=== PATIENT | female | born 1985 | race Hispanic/Latino ===

== ENCOUNTER 2018-12-01 22:03 | Emergency (ER) | payer OTHER ==
[2018-12-01 22:15] VITALS: BP 123/72
[2018-12-01] MEDS ORDERED: IBUPROFEN PO ONE (23:01)
[2018-12-01] MEDS ORDERED: NORCO 5/325 PO ONE (23:01)
[2018-12-01] MEDS ORDERED: CLEOCIN PO ONE (23:01)
--- NOTE | 2018-12-01 23:01 | Emergency Department Report ---
ED Female HPI - General Chief complaint: Dental/Oral Stated complaint: TOOTHACHE Time Seen by Provider: 12/01/18 22:40 Source: patient Mode of arrival: Ambulatory Limitations: No Limitations - Related Data Allergies Allergy/AdvReac Type Severity Reaction Status Date / Time No Known Allergies Allergy Unverified 12/01/18 22:15 ED Review of Systems ROS: Stated complaint: TOOTHACHE Other details as noted in HPI ED Past Medical Hx - Past Medical History Previous Medical History?: No - Surgical History Past Surgical History?: No - Social History Smoking Status: Never Smoker Substance Use Type: None ED Physical Exam - General Limitations: No Limitations ED Course Vital Signs 12/01/18 22:08 Temperature 99.3 F Pulse Rate 71 Respiratory 20 Rate Blood Pressure 123/72 O2 Sat by Pulse 99 Oximetry Critical care attestation.: If time is entered above; I have spent that time in minutes in the direct care of this critically ill patient, excluding procedure time. ED Disposition Condition: Stable
--- NOTE | 2018-12-01 23:02 | Emergency Department Report ---
HPI - General Chief Complaint: Dental/Oral Time Seen by Provider: 12/01/18 22:40 - HPI HPI: This is a 33-year-old female here report that she is having toothache that started today and is 10 out of 10. Pain is located to the left lower tooth with left facial swelling. She said she developed time 2 hours and did not help. Pain is worse with nontoxic in and no alleviating . Denies any nasal congestion, runny nose, sore throat, cough or shortness of breath. Denies any fever or chills or nausea or vomiting. ED Past Medical Hx - Past Medical History Previous Medical History?: No - Surgical History Past Surgical History?: No - Family History Family history: no significant - Social History Smoking Status: Never Smoker Substance Use Type: None - Medications Home Medications: Home Medications Medication Instructions Recorded Confirmed Last Taken Type Acetaminophen/Codeine [Tylenol 1 tab PO Q6H PRN #12 tab 12/01/18 Unknown Rx /Codeine # 3 tab] Amoxicillin [Amoxicillin TAB] 875 mg PO BID 10 Days #20 tablet 12/01/18 Unknown Rx Ibuprofen [Motrin] 800 mg PO Q8HR PRN #12 tablet 12/01/18 Unknown Rx ED Review of Systems ROS: Stated complaint: TOOTHACHE Other details as noted in HPI Constitutional: denies: chills, fever Eyes: denies: eye pain, eye discharge ENT: dental pain. denies: ear pain, throat pain, congestion Respiratory: denies: cough, shortness of breath, wheezing Cardiovascular: denies: chest pain, palpitations, edema, syncope Gastrointestinal: denies: nausea, vomiting Musculoskeletal: denies: back pain, arthralgia Skin: denies: rash Neurological: denies: headache Physical Exam - Physical Exam Vital Signs: Vital Signs 12/01/18 22:08 Temperature 99.3 F Pulse Rate 71 Respiratory 20 Rate Blood Pressure 123/72 O2 Sat by Pulse 99 Oximetry General: This is a 33-year-old female well-nourished well-developed in no acute distress. Physical Exam: Head: Normocephalic atraumatic Ears:BIateral TM pearly lopez . Kobe EAC with normal exam. No mastoid bone tenderness. Mouth: Moist, no pharyngeal erythema or exudate . Tongue is normal and oral airways patent. Uvula is midline. No abscess noted but noted dental tenderness around tooth # 18/19 and 20. Positive gingival enlargement Mild cellulitis without any induration. Noted dental cavities to several teeth without any pulp exposure. Lip is normal. Neck: Nontender to palpate, supple, normal range of motion. No adenopathy. No c- spine tenderness. Nose: Bilateral nasal mucosa normal exam maxillary and frontal sinuses non- tender to palpate. Eyes: Bilateral Sclerae and conjunctiva without injection. Bilateral pupils equal and reactive to light. Bilateral lids are normal. Normal accommodation.BEOMI Lungs: Clear to auscultate bilaterally, no rhonchi wheezes or rales. Normal work of breathing and no chest wall tenderness CV: S1, S2. Regular rate and rhythm negative murmur. Capillary refill is less than 3 seconds Extremity: No clubbing, cyanosis or edema. +2 pulses in all extremities and no neurovascular compromise Skin: Clean dry and intact, no rashes or lesions ED Course Vital Signs 12/01/18 22:08 Temperature 99.3 F Pulse Rate 71 Respiratory 20 Rate Blood Pressure 123/72 O2 Sat by Pulse 99 Oximetry - Reevaluation(s) Reevaluation #1: 12/01/18 23:25 She received Motrin 800 mg by mouth, clindamycin 600 mg by mouth and [place] 5/325 2 tablets by mouth to manage pain and to start treatment for oral cellulitis. ED Medical Decision Making - Medical Decision Making This is a 30-year-old female here for a toothache and that she just moved to [place] and she does not have a dentist. She was found to have dental cavities, gingivitis, fractured tooth and oral cellulitis. Patient was given Motrin 800 mg by mouth, 5/325 2 tablets by mouth and clindamycin 600 mg to treat cellulitis and toothache. I referred her to [facility] dental clinic and also been [facility] dental and they told her to call in the morning to schedule an appointment for follow-up visit. I instructed her in diagnosis, medication and need to follow-up with understanding. Discharged home in stable condition with prescription for Motrin, Tylenol No. 3 and amoxicillin Critical care attestation.: If time is entered above; I have spent that time in minutes in the direct care of this critically ill patient, excluding procedure time. ED Disposition Clinical Impression: Dental caries, Oral cellulitis, Gingivitis Fracture of tooth Qualifiers: Encounter type: initial encounter Fracture type: closed Qualified Code(s): S02.5XXA - Fracture of tooth (traumatic), initial encounter for closed fracture Disposition: DC-01 TO HOME OR SELFCARE Is pt being admited?: No Does the pt Need Aspirin: No Condition: Stable Instructions: Gingivitis (ED), Dental Caries (ED), Toothache (ED), Dental Abscess (ED) Additional Instructions: Please follow up with dentist as discussed. See instructions in discharge instruction paperwork. Call in the morning to schedule an appointment Motrin for mild to moderate pain and Tylenol 3 for severe pain but reason I gave her operate heavy machinery while taking Tylenol No. 3 as this medication causes drowsiness Gargle with Listerine mouthwash at least twice a day Referrals: Adan [facility] [Outside] - 12/05/18 Lonnie [facility] [Outside] - 12/05/18 Forms: Accompanied Note, Work/School Release Form(ED)
== END 2018-12-01 23:40 | disposition home or self-care (01) ==
LOC: ED 22:03
DX: S02.5XXA Fracture of tooth (traumatic), initial encounter for closed fracture (principal); K02.9 Dental caries, unspecified; K05.00 Acute gingivitis, plaque induced; K12.2 Cellulitis and abscess of mouth; X58.XXXA Exposure to other specified factors, initial encounter; Y93.89 Activity, other specified; Y99.8 Other external cause status; Y92.89 Other specified places as the place of occurrence of the external cause
CPT/HCPCS: 99282